=== PATIENT | female | born 1980 | race Caucasian/White ===

== ENCOUNTER 2017-07-25 08:39 | Outpatient (CLI) | payer BC ==
[~2017-07-25] VITALS: Ht 154.9 cm; Wt 89.3 kg
[~2017-07-25 08:39] MED LIST: COLACE100 MG PO; ENDOCET 5-3251 EACH PO; FERROUS SULFAT325 MG PO; IBUPROFEN800 MG PO; MIRALAX17 GM PO; PRENATAL TABLE1 EAC3 PO; TUMS500 MG PO; [UNRECOGNIZED DRUG - OTHER] PO
[2017-07-25 09:03] VITALS: BP 110/65
[2017-07-25 10:14] VITALS: BP 121/74
[2017-07-25 12:41] LABS: HEMATOCRIT 33.2 % (36.0-46.0); HEMOGLOBIN 11.4 G/DL (11.9-15.5); MCH 32.5 PG (29.0-34.0); MCHC 34.3 G/DL (30.0-36.0); MCV 94.6 FL (83-99); PLATELET COUNT 222 K/uL (156-360); RBC DIS.WIDTH-CV 12.3 % (11.8-14.6); RBC DIS.WIDTH-SD 42.6 % (39-53); RED BLOOD COUNT 3.51 M/uL (3.80-5.20); WHITE BLOOD COUNT 13.9 K/uL (4.1-10.2)
[2017-07-25] MEDS ORDERED: IBUPROFEN800 MG PO (19:40)
[2017-07-25] MEDS ORDERED: PERCOCET 5/31 TABLET PO (19:40)
== END 2017-07-25 11:40 | disposition home or self-care (01) ==
LOC: LDRP-OP 08:39 → 2WEST 08:40 → LDRP-OP 08-20 12:49
PROVIDERS: Obstetrics & Gynecology
DX: O47.1 False labor at or after 37 completed weeks of gestation (principal); O99.213 Obesity complicating pregnancy, third trimester; E66.9 Obesity, unspecified; Z68.31 Body mass index [BMI] 31.0-31.9, adult; O09.523 Supervision of elderly multigravida, third trimester; Z3A.40 40 weeks gestation of pregnancy; O34.219 Maternal care for unspecified type scar from previous cesarean delivery
CPT/HCPCS: 59025; 85027; 86850; 86900; 86901; G0378

== ENCOUNTER 2017-07-25 16:21 | Inpatient (IN) | payer BC ==
[~2017-07-25] VITALS: Ht 157.5 cm; Wt 90.0 kg
[2017-07-25 16:35] VITALS: BP 121/70
[2017-07-25 17:44] VITALS: BP 116/68
[2017-07-25] MEDS ORDERED: IBUPROFEN800 MG PO (19:40)
[2017-07-25] MEDS ORDERED: PERCOCET 5/31 TABLET PO (19:40)
[2017-07-25 20:39] VITALS: BP 113/68
[2017-07-25 21:30] VITALS: BP 118/67
[2017-07-25 22:17] VITALS: BP 104/65
[2017-07-26 00:27] VITALS: BP 112/65
[2017-07-26 02:21] VITALS: BP 100/56
[2017-07-26 04:36] VITALS: BP 113/68
[2017-07-26 06:04] LABS: BASOPHIL (%) 0.1 % (0-1); EOSINOPHIL (%) 0.1 % (0-5); HEMATOCRIT 28.8 % (36.0-46.0); HEMOGLOBIN 9.9 G/DL (11.9-15.5); IMMATURE GRANULOCYTE (%) 0.7 % (0.0-0.7); LYMPHOCYTE (%) 11.4 % (15-42); LYMPHOCYTE COUNT 1.7 K/uL (1.0-2.8); MCH 32.8 PG (29.0-34.0); MCHC 34.4 G/DL (30.0-36.0); MCV 95.4 FL (83-99); MONOCYTE (%) 5.2 % (3-12); MONOCYTE COUNT 0.8 K/uL (0-0.8); NEUTROPHIL (%) 82.5 % (45-76); NEUTROPHIL COUNT 12.5 K/uL (1.8-6.4); PLATELET COUNT 195 K/uL (156-360); RBC DIS.WIDTH-CV 12.5 % (11.8-14.6); RBC DIS.WIDTH-SD 43.3 % (39-53); RED BLOOD COUNT 3.02 M/uL (3.80-5.20); WHITE BLOOD COUNT 15.2 K/uL (4.1-10.2)
[2017-07-26 07:30] VITALS: BP 105/69
[2017-07-26 11:24] VITALS: BP 102/58
[2017-07-26 14:31] VITALS: BP 110/65
[2017-07-27 07:09] VITALS: BP 105/55
[2017-07-27 12:06] VITALS: BP 114/65
[2017-07-27 14:34] VITALS: BP 129/67
[2017-07-28] MEDS ORDERED: BREAST PUMP MC (09:36)
[2017-07-28 14:31] VITALS: BP 103/68
[2017-07-28 23:00] VITALS: BP 108/62
== END 2017-07-29 14:20 | disposition home or self-care (01) | DRG 766 ==
LOC: LDRP-OP 16:21 → 2WEST 16:23 → LDRP-OP 08-24 11:59
PROVIDERS: Obstetrics & Gynecology
PROC: 10D00Z1 Extraction of Products of Conception, Low, Open Approach (ICD-10-PCS; principal; 2017-07-25)
DX: O34.211 Maternal care for low transverse scar from previous cesarean delivery (principal); Z37.0 Single live birth; Z3A.40 40 weeks gestation of pregnancy; O12.04 Gestational edema, complicating childbirth; E66.9 Obesity, unspecified; O99.214 Obesity complicating childbirth; Z68.36 Body mass index [BMI] 36.0-36.9, adult; O75.81 Maternal exhaustion complicating labor and delivery
CPT/HCPCS: 59025; 85025; 85027; 86850; 86900; 86901; G0378; J0690; J1100; J1200; J1885; J2274; J2405; J3010; J7120